=== PATIENT | female | born 1960 | race Caucasian/White ===

== ENCOUNTER 2020-01-18 05:15 | Inpatient (IN) | payer MEDICARE, OTHER ==
[~2020-01-18] VITALS: Ht 175.3 cm; Wt 117.9 kg
[2020-01-18 05:21] VITALS: BP 154/60
[2020-01-18 06:00] LABS: ABSOLUTE EOSINOPHILS 0.2 thou/uL (0.0-0.7); ABSOLUTE LYMPHOCYTES 3.3 thou/uL (0.8-5.3); ABSOLUTE MONOCYTES 0.6 thou/uL (0.0-1.2); ABSOLUTE NEUTROPHILS 3.5 thou/uL (1.6-8.1); BASOPHILS 0.6 %; EOSINOPHILS 3.2 %; HEMATOCRIT 37.3 % (37.0-47.0); HEMOGLOBIN 12.6 gm/dL (12.0-15.0); LYMPHOCYTES 42.9 %; MCH 27.9 pg (26.0-34.0); MCHC 33.7 g/dL (28.0-37.0); MCV 82.8 fL (80.0-100.0); MONOCYTES 7.7 %; NUCLEATED RBCS 0 /100WBC; PLATELET COUNT* 211 thou/uL (150-400); POLYS 45.6 %; RDW-CV 15.7 % (10.5-14.5); WBC 7.6 thou/uL (4.0-11.0)
[2020-01-18 06:14] LABS: INR 1.1; PROTIME 11.1 Seconds (9.20-11.50)
[2020-01-18 06:24] LABS: CALCIUM 8.5 mg/dL (8.5-10.1); CREATININE 0.8 mg/dL (0.6-1.3); POTASSIUM 3.6 mmol/L (3.5-5.1)
[2020-01-18 06:33] LABS: ALBUMIN 3.1 g/dL (3.4-5.0); TOTAL BILIRUBIN 0.4 mg/dL (<0.1-1.0); TOTAL PROTEIN 6.7 g/dL (6.4-8.2)
[2020-01-18 07:52] LABS: URINE BILIRUBIN NEGATIVE (Negative); URINE BLOOD NEGATIVE (Negative); URINE CLARITY CLEAR; URINE COLOR YELLOW; URINE GLUCOSE-RANDOM NEGATIVE (Negative); URINE KETONES NEGATIVE (Negative); URINE LEUKOCYTES-REFLEX NEGATIVE (Negative); URINE NITRITE-REFLEX NEGATIVE (Negative); URINE PROTEIN NEGATIVE (Negative); URINE SPECIFIC GRAVITY <= 1.005 (1.005-1.030); URINE UROBILINOGEN 0.2 E.U./dl (0.2-1.0)
[2020-01-18 08:07] LABS: AMP/METHAMP Negative (Negative); BARBITURATES Negative (Negative); BENZODIAZEPINES Negative (Negative); COCAINE Negative (Negative); METHADONE Negative (Negative); OPIATES Negative (Negative); PCP Negative (Negative); THC Negative (Negative)
[2020-01-18 11:22] VITALS: BP 121/58
--- NOTE | 2020-01-18 12:58 | EKG ---
[place] [address] ELECTROCARDIOGRAM REPORT Name: COURTNEY DELCID Room: [place] [address] ADM IN ..#: [id number] Admission: 01/18/20 Attend Phys: Cm Cornejo, Discharge: Date of : 64 Date of Service: 01/18/20 0518 Report #: [id number] THIS REPORT FOR: //name// [facility] ED Test Date: 2020-01-18 Test Time: 05:18:20 Pat Name: COURTNEY DELCID Department: Room: [facility] Gender: F Vice President Of Development: HAJA : 1960 Requested By: Alesha Mccullough Order Number: [id number] MD: Tavo Vizcarra Measurements Intervals [place] Rate: 58 P: 28 UT: 133 QRS: 23 QRSD: 81 T: -6 QT: 532 QTc: 523 Interpretive Statements Sinus bradycardia Borderline T abnormalities, lateral leads Prolonged QT interval No previous ECG available for comparison Electronically Signed On 01-18-2020 12:57:13 PIPELINE WELDER by Tavo Vizcarra [email or web address] <ELECTRONICALLY SIGNED> By: Tavo Vizcarra MD, FACC 01/18/20 1257 0518 7 Tavo Vizcarra MD, [facility] /EPI
[2020-01-18 15:36] VITALS: BP 139/67
[2020-01-18 15:43] VITALS: BP 134/56
[2020-01-18 17:00] VITALS: BP 108/40
[2020-01-18 20:47] VITALS: BP 132/65
[2020-01-19] VITALS: BP 145/57
[2020-01-19 04:00] VITALS: BP 151/54
[2020-01-19 06:10] LABS: ABSOLUTE EOSINOPHILS 0.2 thou/uL (0.0-0.7); ABSOLUTE MONOCYTES 0.5 thou/uL (0.0-1.2); ABSOLUTE NEUTROPHILS 2.1 thou/uL (1.6-8.1); BASOPHILS 0.8 %; EOSINOPHILS 3.9 %; HEMATOCRIT 35.7 % (37.0-47.0); LYMPHOCYTES 41.8 %; MCHC 33.5 g/dL (28.0-37.0); MCV 83.3 fL (80.0-100.0); MONOCYTES 9.5 %; MPV 10.3 fl. (7.2-11.1); NUCLEATED RBCS 0 /100WBC; PLATELET COUNT* 191 thou/uL (150-400); RBC 4.28 mil/uL (4.20-5.00); RDW-CV 16.3 % (10.5-14.5); WBC 4.8 thou/uL (4.0-11.0)
[2020-01-19 06:20] LABS: CALCIUM 8.4 mg/dL (8.5-10.1); CREATININE 0.7 mg/dL (0.6-1.3); POTASSIUM 3.7 mmol/L (3.5-5.1)
[2020-01-19 08:00] VITALS: BP 129/58
[2020-01-19] MEDS ORDERED: ALBUTEROL2.5 MG/0.5 INH (10:47)
[2020-01-19] MEDS ORDERED: ASPIR 8181 M1 PO (10:48)
--- NOTE | 2020-01-19 10:48 | CON ---
[address] [address] CONSULTATION Name: COURTNEY DELCID Room: [address] IN .R.#: [id number] Admission: 01/18/20 Attend Phys: Cm Cornejo MD Discharge: Date of : 64 Report #: [id number] THIS REPORT FOR: //name// cc: BRE Pearson family physician/PCP BRE Pearson family physician/PCP ~ THIS REPORT FOR: //name// CC: Cm Cornejo FAM physician/PCP DATE OF SERVICE: 01/18/2020 HISTORY OF PRESENT ILLNESS: The patient is a 59-year-old obese white female, who I was asked to see in the Emergency Room today after she complained of chest pain. Unfortunately, no old records are available. The patient lives in [place], [place], but was visiting a friend in [place]. She has a history of morbid obesity, previously weighing 330 pounds. She had bariatric surgery a year ago at [facility], now weighs 260 pounds. She is not very active at this time. She states that last night she felt her heart beating fast. She felt somewhat lightheaded. She has been short of breath. Denied any fever, cough, edema. She denies any chest pressure. Her friend brought her to the Emergency Room and she was admitted for further evaluation and treatment. She has had a history of heart murmur. PAST MEDICAL HISTORY: She had knee surgery, hysterectomy, hypertension, diabetes. CURRENT MEDICATIONS: Included simvastatin, insulin, thyroid, hydralazine. ALLERGIES: SHE HAS AN ALLERGY TO MORPHINE. FAMILY HISTORY: Her mother of heart disease. SOCIAL HISTORY: She is single, lives in [place], [place]. She does not work at this time. No smoking or alcohol abuse. REVIEW OF SYSTEMS: She has no history of stroke. She apparently had sleep apnea, uses CPAP. No history of asthma. She apparently had hepatitis B in the past. No kidney disease. No cancer. She sees a psychiatrist for anxiety. No chronic skin condition. PHYSICAL EXAMINATION: GENERAL: Revealed an overweight middle-aged female lying in bed. She appeared in no acute distress. VITAL SIGNS: She had a blood pressure of 140/60, pulse is 70. She is afebrile. HEENT: She was anicteric. Conjunctivae pink. Muc[place] [address] CONSULTATION Name: COURTNEY DELCID Room: [address]#: [id number] Admission: 01/18/20 Attend Phys: Cm Cornejo MD Discharge: Date of : 64 Report #: [id number] NECK: Veins difficult to assess due to obesity. No carotid bruits. CHEST: Clear to auscultation. CARDIOVASCULAR: Regular rate and rhythm. No significant murmur. ABDOMEN: Obese. EXTREMITIES: Had no pitting edema. SKIN: Cool and dry. NEUROLOGIC: Nonfocal. DIAGNOSTIC DATA: Her ECG on admission showed a sinus bradycardia, nonspecific T-wave changes. Workup in the Emergency Room last night, she had a chest x-ray that showed normal heart size, clear lung ayala. She actually had a CT scan of the chest using a PE protocol that showed no pulmonary embolus, otherwise unremarkable. LABORATORY WORK: Sodium 138, creatinine 0.8. Liver function studies were normal. Troponin 0.06. BNP 298. White blood cell count was 7.6, hemoglobin 12.6. Urinalysis was negative for protein. IMPRESSION AND RECOMMENDATIONS: 1. Chest pain. Atypical for angina. Suspect noncardiac. Recommend no further cardiac evaluation. 2. Palpitations. The patient noted to be in sinus rhythm. I would consider discharging with an event recorder to rule out any arrhythmia. 3. Shortness of breath. Suspect diastolic heart failure. Recommend Lasix. We will attempt to obtain records from with the patient, sees a distillery manager. 4. Hypertension. The patient is on hydralazine. 5. Diabetes. 6. Hyperlipidemia. The patient is on a statin drug. 7. Sleep apnea. 8. History of anxiety disorder. <ELECTRONICALLY SIGNED> By: Tavo Vizcarra MD, FACC 01/19/20 1048 0940 [id number] Vizcarra MD, FACC /nt
[2020-01-19] MEDS ORDERED: BENZTROPINE MES1 MG PO (10:49)
[2020-01-19] MEDS ORDERED: ONE TOUCH ULTR1 EACH SUBQ (10:50)
[2020-01-19] MEDS ORDERED: BLOOD GLUCOSE1 EAC1 SUBQ (10:51)
[2020-01-19] MEDS ORDERED: CALCIUM CITRAT1 EA14 PO (10:52)
[2020-01-19] MEDS ORDERED: CLONAZEPAM 0.50.5 M1 PO (10:53)
[2020-01-19] MEDS ORDERED: VITAMIN B-1100 M2 PO (10:53)
[2020-01-19] MEDS ORDERED: VOLTAREN GEL 1100 G1 TOP (10:54)
[2020-01-19] MEDS ORDERED: DEPAKOTE ER500 M1 PO (10:55)
[2020-01-19] MEDS ORDERED: DEPAKOTE ER250 MG PO (10:56)
[2020-01-19] MEDS ORDERED: FLONASE 0.05%50 MCG NASAL (10:57)
[2020-01-19] MEDS ORDERED: PROZAC40 MG PO (10:57)
[2020-01-19] MEDS ORDERED: NEURONTIN300 MG PO (10:58)
[2020-01-19] MEDS ORDERED: HALDOL DEC100 MG/1 M INJECTION (10:59)
[2020-01-19] MEDS ORDERED: NORCO 5-325 TA1 EAC1 PO (11:00)
[2020-01-19] MEDS ORDERED: INSULIN PEN NE1 EAC1 SUBQ (11:01)
[2020-01-19] MEDS ORDERED: TRESIBA FL100 UNIT/1 SUBQ (11:01)
[2020-01-19] MEDS ORDERED: LIDODERM1 EACH TOP (11:02)
[2020-01-19] MEDS ORDERED: VICTOZA0.6 MG/0.1 SUBQ (11:03)
[2020-01-19] MEDS ORDERED: METFORMIN HCL500 M3 PO (11:04)
[2020-01-19] MEDS ORDERED: TOPROL XL25 MG PO (11:05)
[2020-01-19] MEDS ORDERED: ONDANSETRON HCL4 M2 PO (11:32)
[2020-01-19 11:48] VITALS: BP 151/54
[2020-01-19 11:59] VITALS: BP 118/57
[2020-01-19 15:57] VITALS: BP 117/48
== END 2020-01-19 16:49 | disposition home or self-care (01) | DRG 313 ==
LOC: M.ERS 05:15 → M.TBA-ER 06:59 → M.2W 16:33
PROVIDERS: Personal Emergency Response Attendant; ADMIT Internal Medicine
DX: R07.89 Other chest pain (principal); E66.2 Morbid (severe) obesity with alveolar hypoventilation; I50.30 Unspecified diastolic (congestive) heart failure; I11.0 Hypertensive heart disease with heart failure; E11.9 Type 2 diabetes mellitus without complications; F41.9 Anxiety disorder, unspecified; E78.5 Hyperlipidemia, unspecified; F10.20 Alcohol dependence, uncomplicated; I49.3 Ventricular premature depolarization; K76.0 Fatty (change of) liver, not elsewhere classified; Z88.6 Allergy status to analgesic agent; Z68.38 Body mass index [BMI] 38.0-38.9, adult; Z88.1 Allergy status to other antibiotic agents; Z90.710 Acquired absence of both cervix and uterus; Z79.899 Other long term (current) drug therapy; Z79.4 Long term (current) use of insulin; Z79.82 Long term (current) use of aspirin; Z87.820 Personal history of traumatic brain injury